=== PATIENT | male | born 1985 | race Caucasian/White ===

== ENCOUNTER 2019-10-05 16:13 | Emergency (ER) | payer OTHER ==
[2019-10-05] MEDS ORDERED: SODIUM CHLORIDE 0.9% 1,000 ML IV STA (16:48)
[2019-10-05] MEDS ORDERED: SODIUM CHLORIDE 0.9% 500 ML 500 ML IV STA (16:48)
[2019-10-05] MEDS ORDERED: NALOXONE 0.4 MG/ML 1 ML VIAL IV STA (17:17)
[2019-10-05] MEDS ORDERED: NALOXONE 0.4 MG/ML 10 ML VIAL IVP STA (17:19)
[2019-10-05 17:40] LABS: HCT 46.7 % (39.0-53.0); HGB 15.2 gm/dL (13.0-17.5); MCH 31.2 pg (25.0-35.0); MCHC 32.5 g/dL (31.0-37.0); Mean Platelet Volume 8.5; Platelet Count 243 k/uL (150-450); RBC 4.86 m/uL (4.30-5.90); RDW 12.4 % (11.5-15.5); WBC 5.2 k/uL (3.8-10.6)
[2019-10-05 17:48] LABS: ALT 22 U/L (4-49); AST 45 U/L (17-59); Acetaminophen <10.0 ug/mL; African American GFR (CKD) >90 (>60 ml/min/1.73 sqM); Albumin 4.9 g/dL (3.5-5.0); Alcohol 76 mg/dL; Alkaline Phosphatase 73 U/L (38-126); Anion Gap 11 mmol/L; Blood Urea Nitrogen 14 mg/dL (9-20); Calcium 9.8 mg/dL (8.4-10.2); Carbon Dioxide 28 mmol/L (22-30); Chloride 102 mmol/L (98-107); Creatine Kinase 331 U/L (55-170); Glucose 70 mg/dL (74-99); Non-African American GFR(CKD) >90 (>60 ml/min/1.73 sqM); Potassium 4.1 mmol/L (3.5-5.1); Salicylate <1.0 mg/dL; Sodium 141 mmol/L (137-145); Total Bilirubin 0.4 mg/dL (0.2-1.3); Total Protein 8.2 g/dL (6.3-8.2)
[2019-10-05 17:49] LABS: Appearance,Urine Clear (Clear); Bilirubin,Urine Negative (Negative); Blood,Urine Negative (Negative); Color,Urine Yellow; Glucose,Urine (UA) Negative (Negative); Ketones,Urine Negative (Negative); Leukocyte Esterase,Urine Negative (Negative); Nitrite,Urine Negative (Negative); Protein,Urine Negative (Negative); Specific Gravity,Urine 1.011 (1.001-1.035); Urobilinogen,Urine <2.0 mg/dL (<2.0)
[2019-10-05 17:52] LABS: Eosinophils # (M) 0.68 k/uL (0-0.7); Lymphocytes # (M) 1.82 k/uL (1.0-4.8); Monocytes # (M) 0.99 k/uL (0-1.0); Neutrophils # (M) 1.72 k/uL (1.3-7.7); Neutrophils % (M) 33 %; Nucleated Red Blood Cells 0 /100 WBC (0-0); Reactive Lymphocytes Present; Total Cells Counted 100
--- NOTE | 2019-10-05 17:54 | ED ---
Alcohol HPI - General Chief Complaint: Alcohol Stated Complaint: ETOH Time Seen by Provider: 10/05/19 16:26 Source: EMS, RN notes reviewed, old records reviewed Mode of arrival: EMS Limitations: no limitations - History of Present Illness Initial Comments: This is a 32-year-old male patient presents to ER per EMS from [facility] for evaluation regarding alcohol intoxication. Patient's alcohol level was elevated as he was checking in for rehab today in by EMS, awake and alert but now on evaluation patient's decreased activity level decreased responsiveness. 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 ROS Other: All systems not noted in ROS Statement are negative. Past Medical History Past Medical History: No Reported History History of Any Multi-Drug Resistant Organisms: None Reported Past Surgical History: No Surgical Hx Reported Past Psychological History: No Psychological Hx Reported Smoking Status: Current every day smoker Past Alcohol Use History: Abuse Past Drug Use History: Heroin, Marijuana General Exam Limitations: no limitations General appearance: alert, in no apparent distress Head exam: Present: atraumatic, normocephalic, normal inspection Eye exam: Present: normal appearance, PERRL, EOMI. Absent: scleral icterus, conjunctival injection, periorbital swelling ENT exam: Present: normal exam, mucous membranes moist Neck exam: Present: normal inspection. Absent: tenderness, meningismus, lymphadenopathy Respiratory exam: Present: normal lung sounds bilaterally. Absent: respiratory distress, wheezes, rales, rhonchi, stridor Cardiovascular Exam: Present: regular rate, normal rhythm, normal heart sounds. Absent: systolic murmur, diastolic murmur, rubs, gallop, clicks GI/Abdominal exam: Present: soft, normal bowel sounds. Absent: distended, tende rness, guarding, rebound, rigid Extremities exam: Present: normal inspection, full ROM, normal capillary refill. Absent: tenderness, pedal edema, joint swelling, calf tenderness Back exam: Present: normal inspection Neurological exam: Present: alert, oriented X3, CN II-XII intact Psychiatric exam: Present: normal affect, normal mood Skin exam: Present: warm, dry, intact, normal color. Absent: rash Course Vital Signs 10/05/19 10/05/19 10/05/19 16:14 17:14 17:21 Temperature 97.7 F Pulse Rate 84 71 Respiratory 16 18 12 Rate Blood Pressure 106/63 142/100 O2 Sat by Pulse 96 100 Oximetry 10/05/19 10/05/19 10/05/19 18:00 19:00 20:17 Temperature Pulse Rate 85 70 76 Respiratory 12 13 16 Rate Blood Pressure 134/95 120/82 123/90 O2 Sat by Pulse 94 L 94 L 98 Oximetry 10/05/19 20:54 Temperature Pulse Rate 56 L Respiratory 16 Rate Blood Pressure 114/73 O2 Sat by Pulse 98 Oximetry - Reevaluation(s) Reevaluation #1: 10/05/19 19:10 Medical records reviewed Reevaluation #2: 10/05/19 19:10 Patient has multiple history of polysubstance abuse Reevaluation #3: 10/05/19 19:10 Minimal response to Narcan here in the ER 10/05/19 19:10 We did find pills taped the patient's blood tox area here in the ER Reevaluation #4: 10/05/19 22:27 Patient is observed here in the ER currently awake and alert requesting return to [facility] Medical Decision Making - Medical Decision Making Review female DF for evaluation patient significantly on arrival in the ER with a decreased level response this patient does have polysubstance abuse but is distant denies homicidal or suicidal thoughts requesting return [facility] patient is awake and alert able to and without difficulty - Lab Data Result diagrams: 10/05/19 17:11 10/05/19 17:11 Lab Results 10/05/19 10/05/19 10/05/19 Range/Units 17:11 17:11 17:33 WBC 5.2 (3.8-10.6) k/uL RBC 4.86 (4.30-5.90) m/uL Hgb 15.2 (13.0-17.5) gm/dL Hct 46.7 (39.0-53.0) % MCV 96.0 (80.0-100.0) fL MCH 31.2 (25.0-35.0) pg MCHC 32.5 (31.0-37.0) g/dL RDW 12.4 (11.5-15.5) % Plt Count 243 (150-450) k/uL Neutrophils % (Manual) 33 % Lymphocytes % (Manual) 35 % Monocytes % (Manual) 19 % Eosinophils % (Manual) 13 % Neutrophils # (Manual) 1.72 (1.3-7.7) k/uL Lymphocytes # (Manual) 1.82 (1.0-4.8) k/uL Monocytes # (Manual) 0.99 (0-1.0) k/uL Eosinophils # (Manual) 0.68 (0-0.7) k/uL Nucleated RBCs 0 (0-0) /100 WBC Manual Slide Review Performed Reactive Lymphocytes Present Sodium 141 (137-145) mmol/L Potassium 4.1 (3.5-5.1) mmol/L Chloride 102 (98-107) mmol/L Carbon Dioxide 28 (22-30) mmol/L Anion Gap 11 mmol/L BUN 14 (9-20) mg/dL Creatinine 0.83 (0.66-1.25) mg/dL Est GFR (CKD-EPI)AfAm >90 (>60 ml/min/1.73 sqM) Est GFR (CKD-EPI)NonAf >90 (>60 ml/min/1.73 sqM) Glucose 70 L (74-99) mg/dL Calcium 9.8 (8.4-10.2) mg/dL Total Bilirubin 0.4 (0.2-1.3) mg/dL AST 45 (17-59) U/L ALT 22 (4-49) U/L Alkaline Phosphatase 73 (38-126) U/L Creatine Kinase 331 H (55-170) U/L Total Protein 8.2 (6.3-8.2) g/dL Albumin 4.9 (3.5-5.0) g/dL Lipase 146 (23-300) U/L Urine Color Yellow Urine Appearance Clear (Clear) Urine pH 7.0 (5.0-8.0) Ur Specific [place] 1.011 (1.001-1.035) Urine Protein Negative (Negative) Urine Glucose (UA) Negative (Negative) Urine Ketones Negative (Negative) Urine Blood Negative (Negative) Urine Nitrite Negative (Negative) Urine Bilirubin Negative (Negative) Urine Urobilinogen <2.0 (<2.0) mg/dL Ur Leukocyte Esterase Negative (Negative) Salicylates <1.0 mg/dL Urine Opiates Screen Detected H (NotDetected) Ur Oxycodone Screen Not Detected (NotDetected) Urine Methadone Screen Not Detected (NotDetected) Ur Propoxyphene Screen Not Detected (NotDetected) Acetaminophen <10.0 ug/mL Ur Barbiturates Screen Not Detected (NotDetected) U Tricyclic Antidepress Not Detected (NotDetected) Ur Phencyclidine Scrn Not Detected (NotDetected) Ur Amphetamines Screen Not Detected (NotDetected) U Methamphetamines Scrn Not Detected (NotDetected) U Benzodiazepines Scrn Detected H (NotDetected) Urine Cocaine Screen Detected H (NotDetected) U Marijuana (THC) Screen Detected H (NotDetected) Serum Alcohol 76 mg/dL - EKG Data -: EKG Interpreted by Me (EKG shows sinus rhythm rate of 72, OH 148 QRS 114 QTc 425) Disposition Clinical Impression: Alcoholic intoxication, Polysubstance abuse Disposition: HOME SELF-CARE Condition: Good Instructions (If sedation given, give patient instructions): Alcohol Intoxication (ED) Is patient prescribed a controlled substance at d/c from ED?: No Referrals: None,Stated [Primary Care Provider] - 1-2 days
[2019-10-05 17:57] LABS: Amphetamine Screen,Urine Not Detected (NotDetected); Barbiturate Screen,Urine Not Detected (NotDetected); Benzodiazepines Screen,Urine Detected (NotDetected); Cocaine Screen,Urine Detected (NotDetected); Methadone Screen, Urine Not Detected (NotDetected); Opiate Screen,Urine Detected (NotDetected); Oxycodone Screen, Urine Not Detected (NotDetected); Phencyclidine Screen,Urine Not Detected (NotDetected); Tricyclic Antidepressant,Urine Not Detected (NotDetected); Urn Cannabinoid Scrn Detected (NotDetected)
[2019-10-05 20:55] VITALS: PULSE 56
[2019-10-05 23:36] VITALS: BP 118/79; RESP 18; TEMP 98.1
== END 2019-10-05 23:36 | disposition home or self-care (01) ==
LOC: EC 16:13
DX: F10.129 Alcohol abuse with intoxication, unspecified (principal); F19.10 Other psychoactive substance abuse, uncomplicated; F17.200 Nicotine dependence, unspecified, uncomplicated
CPT/HCPCS: 99284 ×2; 96374 ×2; 96361 ×2; 36415; 93005; 80053; 82550; 83690; 85025; 81003; 80306; 83520; 80329; 80320; J2310

== ENCOUNTER 2019-10-10 11:04 | Emergency (ER) | payer OTHER ==
--- NOTE | 2019-10-10 12:10 | ED ---
General Adult HPI - General Chief complaint: Seizure Stated complaint: seizure Time Seen by Provider: 10/10/19 11:10 Source: EMS, RN notes reviewed, old records reviewed Mode of arrival: EMS Limitations: no limitations - History of Present Illness Initial comments: This a 34-year-old male presents to the emergency department from [facility]. Patient states she was there for abusing alcohol and Xanax. Patient states she's been to 5 days. Patient states he was outside felt odd and then according to staff he had a seizure according to EMS it lasted about 3 minutes. Patient states he did hit the back dissected can feel a lump. Patient states he does have a mild headache per patient denies any neck pain. Patient denies any numbness weakness. Patient denies any other injury. Patient states that the first time he had a seizure. Patient states they have not given him any Ativan for his alcohol withdrawal. Patient has no other complaints at this time. - Related Data Home Medications Medication Instructions Recorded Confirmed No Known Home Medications 10/05/19 10/05/19 Allergies Allergy/AdvReac Type Severity Reaction Status Date / Time No Known Allergies Allergy Verified 10/05/19 21:03 Review of Systems ROS Statement: Those systems with pertinent positive or pertinent negative responses have been documented in the HPI. ROS Other: All systems not noted in ROS Statement are negative. Past Medical History Past Medical History: No Reported History History of Any Multi-Drug Resistant Organisms: None Reported Past Surgical History: No Surgical Hx Reported Past Psychological History: No Psychological Hx Reported Smoking Status: Current every day smoker Past Alcohol Use History: Abuse Past Drug Use History: Heroin, Marijuana General Exam - General Exam Comments Initial Comments: GENERAL: Patient is well-developed and well-nourished. Patient is nontoxic and well- hydrated and is in mild distress. Patient has a small hematoma on the left occipital area of his ENT: Neck is soft and supple. No significant lymphadenopathy is noted. Oropharynx is clear. Moist mucous membranes. Neck has full range of motion without eliciting any pain. EYES: The sclera were anicteric and conjunctiva were pink and moist. Extraocular movements were intact and pupils were equal round and reactive to light. Eyelids were unremarkable. PULMONARY: Unlabored respirations. Good breath sounds bilaterally. No audible rales rhonchi or wheezing was noted. CARDIOVASCULAR: There is a regular rate and rhythm without any murmurs gallops or rubs. ABDOMEN: Soft and nontender with normal bowel sounds. SKIN: Skin is clear with no lesions or rashes and otherwise unremarkable. NEUROLOGIC: Patient is alert and oriented x3. Cranial nerves II through XII are grossly intact. Motor and sensory are also intact. Normal speech, volume and content. Symmetrical smile. MUSCULOSKELETAL: Normal extremities with adequate strength and full range of motion. LYMPHATICS: No significant lymphadenopathy is noted PSYCHIATRIC: Normal psychiatric evaluation. Limitations: no limitations Course Vital Signs 10/10/19 10/10/19 11:07 12:38 Pulse Rate 72 76 Respiratory 16 16 Rate Blood Pressure 134/90 132/76 O2 Sat by Pulse 100 99 Oximetry Medical Decision Making - Medical Decision Making CT head negative for any acute abnormalities. CT of the C-spine is negative for any acute abnormality. I assessed the patient after took the collar off and patient had no neck pain with range of motion or palpation. - Lab Data Result diagrams: 10/10/19 12:05 10/10/19 12:05 Lab Results 10/10/19 10/10/19 Range/Units 12:05 12:05 WBC 8.0 (3.8-10.6) k/uL RBC 4.33 (4.30-5.90) m/uL Hgb 13.5 (13.0-17.5) gm/dL Hct 41.9 (39.0-53.0) % MCV 97.0 (80.0-100.0) fL MCH 31.2 (25.0-35.0) pg MCHC 32.2 (31.0-37.0) g/dL RDW 12.6 (11.5-15.5) % Plt Count 197 (150-450) k/uL Neutrophils % 74 % Lymphocytes % 14 % Monocytes % 7 % Eosinophils % 4 % Basophils % 1 % Neutrophils # 6.0 (1.3-7.7) k/uL Lymphocytes # 1.1 (1.0-4.8) k/uL Monocytes # 0.5 (0-1.0) k/uL Eosinophils # 0.3 (0-0.7) k/uL Basophils # 0.1 (0-0.2) k/uL Sodium 137 (137-145) mmol/L Potassium 4.6 (3.5-5.1) mmol/L Chloride 104 (98-107) mmol/L Carbon Dioxide 30 (22-30) mmol/L Anion Gap 3 mmol/L BUN 7 L (9-20) mg/dL Creatinine 0.79 (0.66-1.25) mg/dL Est GFR (CKD-EPI)AfAm >90 (>60 ml/min/1.73 sqM) Est GFR (CKD-EPI)NonAf >90 (>60 ml/min/1.73 sqM) Glucose 81 (74-99) mg/dL Calcium 8.7 (8.4-10.2) mg/dL Total Bilirubin 0.5 (0.2-1.3) mg/dL AST 30 (17-59) U/L ALT 15 (4-49) U/L Alkaline Phosphatase 47 (38-126) U/L Total Protein 6.0 L (6.3-8.2) g/dL Albumin 3.4 L (3.5-5.0) g/dL Disposition Clinical Impression: Alcohol withdrawal seizure Disposition: HOME SELF-CARE Condition: Good Instructions (If sedation given, give patient instructions): New-Onset Seizure in Adults (ED) Additional Instructions: Patient should be put on Ativan to prevent withdrawal seizures from alcohol. Is patient prescribed a controlled substance at d/c from ED?: No Referrals: None,Stated [Primary Care Provider] - 1-2 days Time of Disposition: 12:55
[2019-10-10 12:23] LABS: Basophils # (A) 0.1 k/uL (0-0.2); Basophils % (A) 1 %; Eosinophils # (A) 0.3 k/uL (0-0.7); Eosinophils % (A) 4 %; HCT 41.9 % (39.0-53.0); HGB 13.5 gm/dL (13.0-17.5); Lymphocytes # (A) 1.1 k/uL (1.0-4.8); Lymphocytes % (A) 14 %; MCH 31.2 pg (25.0-35.0); MCHC 32.2 g/dL (31.0-37.0); Mean Platelet Volume 8.9; Monocytes # (A) 0.5 k/uL (0-1.0); Monocytes % (A) 7 %; Neutrophils % (A) 74 %; Platelet Count 197 k/uL (150-450); RBC 4.33 m/uL (4.30-5.90); RDW 12.6 % (11.5-15.5)
--- NOTE | 2019-10-10 12:33 | CT ---
EXAMINATION TYPE: CT brain cspine wo con DATE OF EXAM: 10/10/2019 COMPARISON: None HISTORY: Seizure today with posterior injury, trauma and pain CT DLP: 1374.4 mGycm Automated exposure control for dose reduction was used. TECHNIQUE: CT scan of the head and cervical spine are performed without contrast. FINDINGS: There is some asymmetric fullness increased soft tissue noted in the region of the caverno us sinus on the left. There is no acute intracranial hemorrhage, mass effect, or midline shift identi fied. The ventricles and sulci are within normal limits in size. The globes are intact and the visu alized sinuses are clear. Posterior parietal cephalhematoma is noted. Cervical spine is visualized in its entirety from C1 through upper thoracic levels and demonstrates s atisfactory alignment without evidence of acute fracture or dislocation. Prevertebral soft tissue ap pears within normal limits. The C1-C2 articulation is unremarkable. IMPRESSION: 1. There is no acute fracture or dislocation evident in the cervical spine. 2. No acute intracranial hemorrhage, mass effect, or midline shift is seen. 3. Asymmetric appearance of the left cavernous sinus as compared to right is indeterminate, possibly normal variant. Contrast-enhanced CT or MRI could be performed for better evaluation. Cephalohematoma posterior parietal scalp of the left.
[2019-10-10 12:48] LABS: ALT 15 U/L (4-49); AST 30 U/L (17-59); African American GFR (CKD) >90 (>60 ml/min/1.73 sqM); Albumin 3.4 g/dL (3.5-5.0); Alkaline Phosphatase 47 U/L (38-126); Anion Gap 3 mmol/L; Blood Urea Nitrogen 7 mg/dL (9-20); Calcium 8.7 mg/dL (8.4-10.2); Carbon Dioxide 30 mmol/L (22-30); Chloride 104 mmol/L (98-107); Glucose 81 mg/dL (74-99); Non-African American GFR(CKD) >90 (>60 ml/min/1.73 sqM); Potassium 4.6 mmol/L (3.5-5.1); Sodium 137 mmol/L (137-145); Total Bilirubin 0.5 mg/dL (0.2-1.3)
[2019-10-10 13:10] VITALS: BP 135/76; PULSE 88; RESP 15
== END 2019-10-10 13:07 | disposition home or self-care (01) ==
LOC: EC 11:04
DX: F10.231 Alcohol dependence with withdrawal delirium (principal); F17.200 Nicotine dependence, unspecified, uncomplicated
CPT/HCPCS: 36415; 70450; 72125; 80053; 85025; 99285